=== PATIENT | male | born 1985 | race African-American/Black ===

== ENCOUNTER 2019-12-06 08:49 | Emergency (ER) | payer MEDICARE, MEDICAID ==
[~2019-12-06] VITALS: Ht 182.9 cm; Wt 113.4 kg
[2019-12-06 09:00] VITALS: BP 150/82
== END 2019-12-06 10:22 | disposition home or self-care (01) ==
LOC: ER 08:49
DX: U07.1 COVID-19 (principal); J06.9 Acute upper respiratory infection, unspecified; I10 Essential (primary) hypertension; F17.210 Nicotine dependence, cigarettes, uncomplicated
CPT/HCPCS: 36415; 71045; 87426

== ENCOUNTER 2019-12-14 16:12 | Inpatient (IN) | payer OTHER, MEDICAID ==
[~2019-12-14] VITALS: Ht 188 cm; Wt 135.6 kg
[2019-12-14] MEDS ORDERED: cefTRIAXone 1GM/50ML D5W 50 ML IV ONE (17:30)
[2019-12-14] MEDS ORDERED: ASCORBIC ACID 500 MG TAB PO ONE (17:30)
[2019-12-14] MEDS ORDERED: ZINC SULFATE 220mg CAP or TAB PO ONE (17:30)
[2019-12-14] MEDS ORDERED: DexAMETHasone 4 MG TAB PO ONE (17:30)
[2019-12-14] MEDS ORDERED: SODIUM CHLORIDE 0.9% 1,000 ML IV ONE (17:30)
[2019-12-14] MEDS ORDERED: ACETAMINOPHEN 500 MG TAB PO ONE (17:30)
[2019-12-14] MEDS ORDERED: HYDROcodone-ACET 5/325MG TAB PO PRN (18:45)
[2019-12-14] MEDS ORDERED: NITROGLYCERIN 0.4 MG SL TAB SL PRN (18:45)
[2019-12-14] MEDS ORDERED: ONDANSETRON HCL 4 MG/2 ML VIAL IV PRN (18:45)
[2019-12-14] MEDS ORDERED: MORPHINE SULF INJ 2 MG/ML SYRINGE 1ML IV PRN ×2 (18:45)
[2019-12-14] MEDS ORDERED: ACETAMINOPHEN 500 MG TAB PO PRN ×2 (18:45)
[2019-12-14 19:01] LABS: Basophils # (auto) 0 10 ^3/uL (0-0.2); Eosinophils # (auto) 0 10 ^3/uL (0-0.8); Eosinophils % (auto) 0.2 % (0.0-7.0); Hemoglobin 18.8 g/dL (13.5-17.5); Lymphocytes # (auto) 1.6 10 ^3/uL (0.4-5.4); Monocytes # (auto) 0.3 10 ^3/uL (0-1.3); Neutrophils # (auto) 2.3 10 ^3/uL (1.6-8.6)
[2019-12-14 19:02] LABS: Basophils % (auto) 0.5 % (0.0-2.0); Lymphocytes % (auto) 38.5 % (10.0-50.0); Mean Corpuscular Hemoglobin 28.4 pg (28.0-32.0); Mean Corpuscular Hgb Conc. 33.5 g/dL (32.0-36.0); Mean Corpuscular Volume 84.8 fL (80.0-100.0); Monocytes % (auto) 7.3 % (0.0-12.0); Neutrophils % (auto) 53.5 % (37.0-80.0); Nucleated Red Blood Cells % 0.8 %; Platelet Count (auto) 235 10^3/uL (140-450); Red Blood Cells 6.64 10^6/uL (4.5-5.90); Red Cell Distribution Width 12.6 % (11.8-14.3); White Blood Cell 4.2 10^3/uL (4.4-10.8)
[2019-12-14 19:04] LABS: Hematocrit 56.2 % (41.0-53.0)
[2019-12-14 19:14] LABS: INR 1.03 (0.9-1.15); Partial Thromboplastin Time 27.6 sec (23.0-31.2)
[2019-12-14] MEDS ORDERED: LABETALOL HCL 5 MG/ML 4ML SYRINGE IV PRN (19:15)
[2019-12-14 19:23] LABS: Albumin 3.3 g/dL (3.4-5.0); Calcium 8.5 mg/dL (8.5-10.1); Magnesium 2.2 mg/dL (1.6-2.6); Potassium 3.8 mmol/L (3.5-5.1)
[2019-12-14 19:26] LABS: Lactic Acid w/Reflex 2.3 mmol/L (0.4-2.0)
[2019-12-14 19:27] LABS: BUN/Creatinine Ratio 6.6; Total Protein 7.9 g/dL (6.4-8.2)
[2019-12-14 19:41] LABS: CRP High Sensitivity 5.03 mg/dL (< 0.3)
[2019-12-14] MEDS: ALBUTEROL SULF HFA 90MCG INH 200DOSE IN SCH (21:53)
[2019-12-14] MEDS: BUDESONIDE (INHALATION) 180 MCG IH IN SCH (21:54)
[2019-12-14 22:00] VITALS: BP 143/79
[2019-12-14] MEDS: DOXYCYCLINE 100MG/250ML 250 ML IV SCH (22:24)
[2019-12-15] VITALS (7 sets, daily range): BP systolic 129–143; BP diastolic 79–86
[2019-12-15 06:24] LABS: Basophils # (auto) 0 10 ^3/uL (0-0.2); Basophils % (auto) 1.5 % (0.0-2.0); Eosinophils # (auto) 0 10 ^3/uL (0-0.8); Hematocrit 55.3 % (41.0-53.0); Hemoglobin 18.1 g/dL (13.5-17.5); Lymphocytes # (auto) 0.9 10 ^3/uL (0.4-5.4); Lymphocytes % (auto) 28.5 % (10.0-50.0); Mean Corpuscular Hgb Conc. 32.7 g/dL (32.0-36.0); Mean Corpuscular Volume 85.7 fL (80.0-100.0); Monocytes # (auto) 0.2 10 ^3/uL (0-1.3); Monocytes % (auto) 7.6 % (0.0-12.0); Neutrophils # (auto) 1.9 10 ^3/uL (1.6-8.6); Neutrophils % (auto) 62.4 % (37.0-80.0); Nucleated Red Blood Cells % 0.4 %; Platelet Count (auto) 249 10^3/uL (140-450); Red Blood Cells 6.45 10^6/uL (4.5-5.90); Red Cell Distribution Width 13.1 % (11.8-14.3); White Blood Cell 3.1 10^3/uL (4.4-10.8)
[2019-12-15 06:35] LABS: Albumin 3.1 g/dL (3.4-5.0); BUN/Creatinine Ratio 10.4; Calcium 8.7 mg/dL (8.5-10.1); Potassium 4.4 mmol/L (3.5-5.1)
[2019-12-15 06:38] LABS: Bilirubin, Total 1.2 mg/dL (0.2-1.0); Total Protein 7.8 g/dL (6.4-8.2)
[2019-12-15 06:53] LABS: Urine WBC None Seen /hpf (0 - 3)
[2019-12-15 07:12] LABS: Urine Bacteria NONE SEEN /hpf (None Seen); Urine Blood Negative /uL (Negative); Urine Specific Gravity 1.021 (1.001-1.035)
[2019-12-15] MEDS: ALBUTEROL SULF HFA 90MCG INH 200DOSE IN SCH ×2 (09:35→16:23)
[2019-12-15] MEDS: BUDESONIDE (INHALATION) 180 MCG IH IN SCH (09:36)
[2019-12-15] MEDS ORDERED: ASCORBIC ACID 1,000 MG TAB PO SCH (10:00)
[2019-12-15] MEDS ORDERED: DexAMETHasone SOD PHOS 10MG/1ML VIAL INJ IV SCH (10:00)
[2019-12-15] MEDS ORDERED: ENOXAPARIN SOD 40 MG/0.4 ML SYRINGE SC SCH (10:00)
[2019-12-15] MEDS ORDERED: FAMOTIDINE 20 MG TAB PO SCH (10:00)
[2019-12-15] MEDS ORDERED: CHOLECALCIFEROL (VITD3) 2,000 UNIT CAP PO SCH (10:00)
[2019-12-15] MEDS ORDERED: ZINC SULFATE 220mg CAP or TAB PO SCH (10:00)
[2019-12-15] MEDS ORDERED: amLODIPine BESYLATE 5 MG TAB PO SCH (10:00)
[2019-12-15] MEDS: DOXYCYCLINE 100MG/250ML 250 ML IV SCH (10:34)
== END 2019-12-15 17:10 | disposition home or self-care (01) | DRG 177 ==
LOC: ER 16:12 → TELE 18:33 → TELE-EAST 21:25
PROVIDERS: ADMIT Nurse Practitioner Acute Care; ATTEND Internal Medicine
DX: U07.1 COVID-19 (principal); J12.89 Other viral pneumonia; E66.9 Obesity, unspecified; I10 Essential (primary) hypertension; F17.210 Nicotine dependence, cigarettes, uncomplicated; Z82.49 Family history of ischemic heart disease and other diseases of the circulatory system
CPT/HCPCS: 36415; 71045; 80053; 81001; 82728; 83605; 83615; 83735; 84443; 85025; 85379; 85610; 85730; 86141; 87040; 87426; 94640; 96365; 96366; G0378; J0696; J1100; J3490

== ENCOUNTER 2019-12-20 11:27 | Emergency (ER) | payer OTHER, MEDICAID ==
[~2019-12-20] VITALS: Ht 185.4 cm; Wt 127.0 kg
[2019-12-20 11:27] VITALS: BP 143/93
== END 2019-12-20 12:43 | disposition home or self-care (01) ==
LOC: ER 11:27
DX: U07.1 COVID-19 (principal); L25.9 Unspecified contact dermatitis, unspecified cause; I10 Essential (primary) hypertension; F17.210 Nicotine dependence, cigarettes, uncomplicated